=== PATIENT | female | born 1990 | race Caucasian/White ===

== ENCOUNTER 2016-12-08 17:50 | Emergency (ER) | payer SELFPAY ==
[~2016-12-08] VITALS: Ht 160 cm; Wt 79.5 kg
[~2016-12-08 17:50] MED LIST: ALBU2.5I INH; ALBU8I INH; DUONI NEB; PRED20 PO
[2016-12-08 17:51] VITALS: BP 139/83; PULSE 71; RESP 16; TEMP 98.8; O2SAT 99
--- NOTE | 2016-12-08 17:56 | PD ---
Physical Exam Time Seen by Provider: 17:53 Narrative 26yo F midsternal chest pain started earlier today. Progressively getting worse. Denies SOB. +Palpitations at times. Radiates to L arm "kind of." Denies N,V. Patient seen in triage. VS reviewed. Awaiting bed placement. Data Data Last Documented VS Vital Signs Date Time Temp Pulse Resp B/P Pulse Ox O2 Delivery O2 Flow Rate FiO2 12/08/16 17:51 98.8 71 16 139/83 99 Room Air MDM Supervised Visit with BRYANT: Blanca Batres December 08, 2016 17:56
[2016-12-08] MEDS ORDERED: KETOROLAC TROMETHAMINE 30 MG/ML (IVP) VIAL IV PUSH ONE (18:30)
[2016-12-08] MEDS ORDERED: SODIUM CHLORIDE 0.9% FLUSH 10 ML FLUSH IVF PRN (18:30)
[2016-12-08 18:37] LABS: AUTOMATED NEUTROPHIL # 5.7 TH/MM3 (1.8-7.7); BASOPHIL # 0.1 TH/MM3 (0-0.2); BASOPHIL % 0.6 % (0.0-2.0); EOSINOPHIL # 0.3 TH/MM3 (0-0.4); EOSINOPHIL % 2.8 % (0.0-4.0); HEMATOCRIT 39.4 % (35.0-46.0); HEMO FLAGS DIFF FINAL; LYMPH % 30.1 % (9.0-44.0); LYMPHOCYTE # 2.9 TH/MM3 (1.0-4.8); MEAN CELL VOLUME 78.7 FL (80.0-100.0); MEAN CORPUSCULAR HEMOGLOBIN 25.6 PG (27.0-34.0); MEAN CORPUSCULAR HGB CONC 32.6 % (32.0-36.0); MONO % 8.2 % (0.0-8.0); NEUT % 58.3 % (16.0-70.0); PLATELET COUNT 281 TH/MM3 (150-450); RED BLOOD COUNT 5.01 MIL/MM3 (4.00-5.30); RED CELL DISTRIBUTION WIDTH 13.6 % (11.6-17.2); WHITE BLOOD COUNT 9.8 TH/MM3 (4.0-11.0)
[2016-12-08 18:38] VITALS: O2SAT 98
--- NOTE | 2016-12-08 18:45 | RADRPT ---
EXAM DATE/TIME: 12/08/2016 18:29 [facility] COMPARISON: CHEST PA & LAT, November 09, 2014, 14:54. INDICATIONS : Chest pain. MEDICAL HISTORY : Asthma. SURGICAL HISTORY : None. ENCOUNTER: Initial ACUITY: 1 day PAIN SCORE: 7/10 LOCATION: chest FINDINGS: PA and lateral views of the chest demonstrate the lungs to be symmetrically aerated without evidence of mass, infiltrate or effusion. The cardiomediastinal contours are unremarkable. Osseous structure s are intact. CONCLUSION: Normal examination. Miguelito Duval MD on December 08, 2016 at 18:43 Board Certified Radiologist. This report was verified electronically.
--- NOTE | 2016-12-08 18:54 | PD ---
HPI Chief Complaint: Chest Pain Time Seen by Provider: 18:18 Travel History International Travel<30 days: No Contact w/Intl Traveler<30days: No Traveled to known affect area: No History of Present Illness HPI There is a 26-year-old female presents emergency Department with chest pain left -sided without radiation since early this morning. Patient states she's never had this Thing happen to her before. States the pain is sharp in nature, constant. Cannot determine any alleviating or exacerbating factors. Denies any shortness breath denies any hormone contraception of any kind. No family history of early heart disease. She denies any history of high blood pressure high cholesterol diabetes. Denies any dysphasia. PFSH Past Medical History Asthma: Yes Respiratory: Yes (ASTHMA) Immunizations Current: No ?: Not LMP: 11/15/16 : 0 Social History Alcohol Use: Yes (OCC) Tobacco Use: No Substance Use: No Allergies-Medications (Allergen,Severity, Reaction): Coded Allergies: No Known Allergies (Verified , 12/08/16) Reported Meds & Prescriptions Reported Meds & Active Scripts Active Deltasone 20 Mg Tab (Prednisone) 20 Mg Tab 20 Mg PO BID 5 Days Resp: Albuterol 2.5 Mg/3 Ml Neb (Albuterol Sulfate) 2.5 Mg/3 Ml Nebu 2.5 Mg INH Q4H PRN Ventolin Hfa (Albuterol Sulfate) 8 Gm Aero 1 Puff INH Q4 * SHAKE WELL BEFORE USE * Reported Resp: Albuterol/Ipratropium 2.5 Mg/0.5 Mg (Albuterol/Ipratropium) 1 Amp Nebu 1 Ampule NEB Q4HR NEB PRN Review of Systems Except as stated in HPI: all other systems reviewed are Neg Physical Exam Narrative GENERAL: Well-developed well-nourished no apparent distress. SKIN: No rash no wound no contusion. HEAD: Atraumatic. Normocephalic. EYES: Pupils equal and round. No scleral icterus. No injection or drainage. ENT: No nasal bleeding or discharge. Mucous membranes pink and moist. NECK: Trachea midline. No JVD. CARDIOVASCULAR: Regular rate and rhythm. No murmur appreciated. 2+ bilateral equal pulses in all 4 extremities, no chest wall tenderness. RESPIRATORY: No accessory muscle use. Clear to auscultation. Breath sounds equal bilaterally. GASTROINTESTINAL: Abdomen soft, non-tender, nondistended. Hepatic and splenic margins not palpable. MUSCULOSKELETAL: No obvious deformities. No clubbing. No cyanosis. No edema. NEUROLOGICAL: Awake and alert. No obvious cranial nerve deficits. Motor grossly within normal limits. Normal speech. PSYCHIATRIC: Appropriate mood and affect; insight and judgment normal. Data Data Last Documented VS Vital Signs Date Time Temp Pulse Resp B/P Pulse Ox O2 Delivery O2 Flow Rate FiO2 12/08/16 18:38 98 Room Air 12/08/16 17:51 98.8 71 16 139/83 Orders Electrocardiogram (12/08/16 ) Electrocardiogram (12/08/16 18:18) Complete Blood Count With Diff (12/08/16 18:18) Comprehensive Metabolic Panel (12/08/16 18:18) Magnesium (Mg) (12/08/16 18:18) Troponin I (12/08/16 18:18) Ecg Monitoring (12/08/16 18:18) Iv Access Insert/Monitor (12/08/16 18:18) Oximetry (12/08/16 18:18) Oxygen Administration (12/08/16 18:18) Sodium Chloride 0.9% Flush (Ns Flush) (12/08/16 18:30) Chest, Pa & Lat (12/08/16 18:18) Ketorolac Inj (Toradol Inj) (12/08/16 18:30) Labs Laboratory Tests Test 12/08/16 18:20 White Blood Count 9.8 TH/MM3 Red Blood Count 5.01 MIL/MM3 Hemoglobin 12.9 GM/DL Hematocrit 39.4 % Mean Corpuscular Volume 78.7 FL Mean Corpuscular Hemoglobin 25.6 PG Mean Corpuscular Hemoglobin 32.6 % Concent Red Cell Distribution Width 13.6 % Platelet Count 281 TH/MM3 Mean Platelet Volume 8.8 FL Neutrophils (%) (Auto) 58.3 % Lymphocytes (%) (Auto) 30.1 % Monocytes (%) (Auto) 8.2 % Eosinophils (%) (Auto) 2.8 % Basophils (%) (Auto) 0.6 % Neutrophils # (Auto) 5.7 TH/MM3 Lymphocytes # (Auto) 2.9 TH/MM3 Monocytes # (Auto) 0.8 TH/MM3 Eosinophils # (Auto) 0.3 TH/MM3 Basophils # (Auto) 0.1 TH/MM3 CBC Comment DIFF FINAL Differential Comment Sodium Level 139 MEQ/L Potassium Level 3.6 MEQ/L Chloride Level 104 MEQ/L Carbon Dioxide Level 27.2 MEQ/L Anion Gap 8 MEQ/L Blood Urea Nitrogen 15 MG/DL Creatinine 0.67 MG/DL Estimat Glomerular Filtration 106 ML/MIN Rate Random Glucose 80 MG/DL Calcium Level 8.9 MG/DL Magnesium Level 1.9 MG/DL Total Bilirubin 0.3 MG/DL Aspartate Amino Transf 14 U/L (AST/SGOT) Alanine Aminotransferase 18 U/L (ALT/SGPT) Alkaline Phosphatase 68 U/L Troponin I LESS THAN 0.02 NG/ML Total Protein 7.2 GM/DL Albumin 3.6 GM/DL [facility] Medical Decision Making Medical Screen Exam Complete: Yes Emergency Medical Condition: Yes Interpretation(s) EKG shows sinus arrhythmia left axis deviation and normal R-wave progression. No concerning ST-T changes. Intervals within normal limits. This is a borderline EKG but certainly nonischemic. Differential Diagnosis ACS highly unlikely, PE is excluded by wells and PERC criteria, costochondritis , esophagitis, gastritis. Narrative Course Patient was roomed in emergency department, initial workup including EKG troponin and chest x-ray and basic labs were reassuring. Patient was given Toradol which relieved her pain. Discussed need for follow-up the primary care physician of these daily clinic. She is low risk for ACS and is stable for discharge and outpatient workup at this time. Discussed return to ED criteria. Diagnosis Primary Impression: Chest pain with low risk for cardiac etiology Referrals: [facility] Disposition: 01 DISCHARGE HOME Condition: Stable Santiago Paige MD December 08, 2016 18:54
[2016-12-08 18:58] LABS: ANION GAP 8 MEQ/L (5-15); AST (GOT) 14 U/L (15-37); BICARBONATE 27.2 MEQ/L (21.0-32.0); BLOOD UREA NITROGEN 15 MG/DL (7-18); CHLORIDE 104 MEQ/L (98-107); GLOMERULAR FILTRATION RATE 106 ML/MIN (>89); MAGNESIUM 1.9 MG/DL (1.5-2.5); POTASSIUM 3.6 MEQ/L (3.5-5.1); SODIUM (NA) 139 MEQ/L (136-145)
[2016-12-08 19:02] LABS: ALKALINE PHOSPHATASE 68 U/L (45-117); ALT (GPT) 18 U/L (10-53); TOTAL BILIRUBIN ADULT 0.3 MG/DL (0.2-1.0)
--- NOTE | 2016-12-09 17:23 | EKG ---
Date Performed: 12/08/2016 Time Performed: 18:08:20 PTAGE: 26 years EKG: Sinus rhythm WITH MARKED SINUS ARRHYTHMIA BORDERLINE LEFT AXIS DEVIATION BORDERLINE ECG PREVIOUS TRACING : 01/19/2014 16.10 Compared to prior tracing no significant change DOCTOR: Lenin Neumann Interpretating Date/Time 12/09/2016 17:22:42
== END 2016-12-08 19:43 | disposition home or self-care (01) ==
LOC: NEPD 17:50
DX: R07.9 Chest pain, unspecified (principal)
CPT/HCPCS: 71020; 80053; 83735; 84484; 85025; 93005; 96374; 99285; J1885

== ENCOUNTER 2017-05-27 12:31 | Emergency (ER) | payer SELFPAY ==
[~2017-05-27] VITALS: Ht 160 cm; Wt 82.2 kg
[2017-05-27 12:33] VITALS: BP 141/94; PULSE 90; RESP 13; TEMP 98.5; O2SAT 99
[2017-05-27 12:59] VITALS: BP_SYST 145; BP_SYST 149; BP_DIAS 78; BP_DIAS 85; RESP 15; RESP 16
[2017-05-27] MEDS ORDERED: SODIUM CHLOR 0.9% 1000 ML INJ 1,000 ML IV ONE (13:00)
--- NOTE | 2017-05-27 13:04 | PD ---
HPI Chief Complaint: Cardiac Complaint Time Seen by Provider: 12:48 Travel History International Travel<30 days: No Contact w/Intl Traveler<30days: No Traveled to known affect area: No History of Present Illness HPI 26-year-old female that presents to the ED for evaluation of palpitations and possible syncope. Per patient she was at work today for about an hour ago had the episode where she felt like her heart was palpitating and then it stopped and then she thought she was given a passout. Per patient was in for about a minute. Patient states that she still doesn't feel back to normal. She has a history of asthma but denies any history of heart disease. States having a history of smoking. No history of palpitations or anxiety. Denies any fevers chills or sweats. States that she's been having some pains in her arms and legs to come and go. Per patient he feels like a nerve. She's had this for quite some time and has never been seen by anybody for this but states that for the past 3 days is becoming more noticeable for her. Per patient the discomfort is 4 out of 10. She states that she doesn't have any chest pain at this time but she feels something we are her chest. Denies any trauma. No head injury. Came by private vehicle. PFSH Past Medical History Asthma: Yes Respiratory: Yes (ASTHMA) Immunizations Current: No Tetanus Vaccination: Unknown Influenza Vaccination: No ?: Not LMP: APR 2017 : 0 Past Surgical History Surgical History: No Previous Surgery Social History Alcohol Use: Yes (OCC) Tobacco Use: No Substance Use: No Allergies-Medications (Allergen,Severity, Reaction): Coded Allergies: No Known Allergies (Verified Adverse Reaction, Unknown, 05/27/17) Reported Meds & Prescriptions Reported Meds & Active Scripts Active Vistaril (Hydroxyzine Pamoate) 25 Mg Cap 25 Mg PO TID PRN Proair Hfa 8.5 GM Inh (Albuterol Sulfate) 90 Mcg/Act Aer 2 Puff INH Q4-6H PRN 108 mcg/actuation Review of Systems Except as stated in HPI: all other systems reviewed are Neg Physical Exam Narrative GENERAL: SKIN: Warm and dry. HEAD: Atraumatic. Normocephalic. EYES: Pupils equal and round. No scleral icterus. No injection or drainage. ENT: No nasal bleeding or discharge. Mucous membranes pink and moist. Tongue is midline. No uvula deviation. NECK: Trachea midline. No JVD. CARDIOVASCULAR: Regular rate and rhythm. No murmurs, S3, S4. RESPIRATORY: No accessory muscle use. Clear to auscultation. Breath sounds equal bilaterally. GASTROINTESTINAL: Abdomen soft, non-tender, nondistended. Hepatic and splenic margins not palpable. MUSCULOSKELETAL: Extremities without clubbing, cyanosis, or edema. No obvious deformities. Full range of motion of the upper and lower extremities bilaterally. 2+ pulses bilaterally. NEUROLOGICAL: Awake and alert. No obvious cranial nerve deficits. Motor grossly within normal limits. Five out of 5 muscle strength in the arms and legs. Normal speech. PSYCHIATRIC: Appropriate mood and affect; insight and judgment normal. Data Data Last Documented VS Vital Signs Date Time Temp Pulse Resp B/P (MAP) Pulse Ox O2 Delivery O2 Flow Rate FiO2 05/27/17 12:59 90 15 145/78 (100) 90 16 145/78 (100) 88 145/82 (103) 92 149/85 (106) 05/27/17 12:44 99 Nasal Cannula 2.00 05/27/17 12:33 98.5 Orders Orders Electrocardiogram (05/27/17 12:52) Complete Blood Count With Diff (05/27/17 12:52) Basic Metabolic Panel (Bmp) (05/27/17 12:52) Ckmb (Isoenzyme) Profile (05/27/17 12:52) Troponin I (05/27/17 12:52) Prothrombin Time / Inr (Pt) (05/27/17 12:52) Act Partial Throm Time (Ptt) (05/27/17 12:52) D-Dimer (05/27/17 12:52) Magnesium (Mg) (05/27/17 12:52) Thyroid Stimulating Hormone (05/27/17 12:52) Chest, Single Ap (05/27/17 12:52) Ct Brain W/O Iv Contrast(Rout) (05/27/17 12:52) Iv Access Insert/Monitor (05/27/17 12:52) Ecg Monitoring (05/27/17 12:52) Orthostatic Vital Signs (05/27/17 12:52) Ed Urine Pregnancytest Poc (05/27/17 12:52) Sodium Chlor 0.9% 1000 Ml Inj (Ns 1000 M (05/27/17 13:00) Ed Discharge Order (05/27/17 14:00) Labs Laboratory Tests Test 05/27/17 13:00 White Blood Count 10.2 TH/MM3 Red Blood Count 4.78 MIL/MM3 Hemoglobin 12.5 GM/DL Hematocrit 38.0 % Mean Corpuscular Volume 79.3 FL Mean Corpuscular Hemoglobin 26.2 PG Mean Corpuscular Hemoglobin Concent 33.1 % Red Cell Distribution Width 14.2 % Platelet Count 273 TH/MM3 Mean Platelet Volume 8.8 FL Neutrophils (%) (Auto) 61.5 % Lymphocytes (%) (Auto) 27.6 % Monocytes (%) (Auto) 7.9 % Eosinophils (%) (Auto) 2.4 % Basophils (%) (Auto) 0.6 % Neutrophils # (Auto) 6.3 TH/MM3 Lymphocytes # (Auto) 2.8 TH/MM3 Monocytes # (Auto) 0.8 TH/MM3 Eosinophils # (Auto) 0.2 TH/MM3 Basophils # (Auto) 0.1 TH/MM3 CBC Comment DIFF FINAL Differential Comment Prothrombin Time 10.7 SEC Prothromb Time International Ratio 1.0 RATIO Activated Partial Thromboplast Time 27.3 SEC D-Dimer Quantitative (PE/DVT) LESS THAN 0.19 MG/L FEU Blood Urea Nitrogen 19 MG/DL Creatinine 0.68 MG/DL Random Glucose 84 MG/DL Calcium Level 8.6 MG/DL Magnesium Level 2.0 MG/DL Sodium Level 138 MEQ/L Potassium Level 4.2 MEQ/L Chloride Level 105 MEQ/L Carbon Dioxide Level 26.1 MEQ/L Anion Gap 7 MEQ/L Estimat Glomerular Filtration Rate 104 ML/MIN Total Creatine Kinase 87 U/L Troponin I LESS THAN 0.02 NG/ML Thyroid Stimulating Hormone 3rd Gen 2.100 uIU/ML MDM Medical Decision Making Medical Screen Exam Complete: Yes Emergency Medical Condition: Yes Medical Record Reviewed: Yes Interpretation(s) EKG shows sinus rhythm with no sign of acute ischemia or arrhythmia read by me and attending. CBC & BMP Diagram 05/27/17 13:00 Calcium Level 8.6, Magnesium Level 2.[address] 05/27/17 1252 Signed Impressions: Service Date/Time: Saturday, May 27, 2017 13:32 - CONCLUSION: Negative noncontrast head CT. Mikey Coleman MD Chest X-Ray 05/27/17 5802 Signed Impressions: Service Date/Time: Saturday, May 27, 2017 13:14 - CONCLUSION: No acute cardiopulmonary process. Dario Dubon MD Troponin and CK-MB negative. UA negative for acute disease. D-dimer negative as well. Differential Diagnosis Chest pain versus palpitations versus anxiety versus PE versus asthma exacerbation versus a typical chest pain versus syncope versus presyncope Narrative Course 26-year-old female that presents to the ED for evaluation of chest pain and palpitations. Patient was properly examined and was found to have signs and symptoms of unclear etiology. Possible anxiety versus cardiac. Labs and imaging were ordered. Low risk for PE but patient does smoke. Labs and imaging were ordered. This showed no sign of acute disease. Labs and imaging completely unremarkable. Unclear etiology of the patient's symptoms. Possible anxiety in the differential. Patient does have a history of asthma and has been using an old inhaler that no longer has any medication. Patient was given a refill of her inhaler and a perception for Vistaril to cover for anxiety. Told to follow closely with PCP. See ED worsening symptoms. Dr. Paul evaluated the patient and agrees with plan. Diagnosis Primary Impression: Near syncope Additional Impression: Atypical chest pain Patient Instructions: General Instructions Departure Forms: Tests/Procedures, Work Release Enter return to work date: May 29, 2017 Additional Instructions: Take medication as prescribed. Follow-up with PCP. See ED worsening symptoms. Med/Other Pt SpecificInfo: Prescription(s) given Scripts Hydroxyzine Pamoate (Vistaril) 25 Mg Cap 25 MG PO TID Y for ANXIETY, #14 CAP 0 Refills Prov: Moose Nuemann MD 05/27/17 Albuterol 8.5 GM Inh (Proair Hfa 8.5 GM Inh) 90 Mcg/Act Aer 2 PUFF INH Q4-6H Y for SHORTNESS OF BREATH, #1 INHALER 0 Refills 108 mcg/actuation Prov: Moose Neumann MD 05/27/17 Disposition: 01 DISCHARGE HOME Condition: Stable Enrique Chery May 27, 2017 13:04
[2017-05-27 13:18] LABS: AUTOMATED NEUTROPHIL # 6.3 TH/MM3 (1.8-7.7); BASOPHIL # 0.1 TH/MM3 (0-0.2); BASOPHIL % 0.6 % (0.0-2.0); EOSINOPHIL # 0.2 TH/MM3 (0-0.4); EOSINOPHIL % 2.4 % (0.0-4.0); HEMO FLAGS DIFF FINAL; LYMPH % 27.6 % (9.0-44.0); LYMPHOCYTE # 2.8 TH/MM3 (1.0-4.8); MEAN CELL VOLUME 79.3 FL (80.0-100.0); MEAN CORPUSCULAR HEMOGLOBIN 26.2 PG (27.0-34.0); MEAN CORPUSCULAR HGB CONC 33.1 % (32.0-36.0); MONO % 7.9 % (0.0-8.0); NEUT % 61.5 % (16.0-70.0); PLATELET COUNT 273 TH/MM3 (150-450); RED BLOOD COUNT 4.78 MIL/MM3 (4.00-5.30); RED CELL DISTRIBUTION WIDTH 14.2 % (11.6-17.2); WHITE BLOOD COUNT 10.2 TH/MM3 (4.0-11.0)
--- NOTE | 2017-05-27 13:32 | RADRPT ---
EXAM DATE/TIME: 05/27/2017 13:14 [facility] COMPARISON: CHEST SINGLE AP, January 19, 2014, 16:28. INDICATIONS : Shortness of breath and faint feeling. MEDICAL HISTORY : Asthma. SURGICAL HISTORY : None. ENCOUNTER: Initial ACUITY: 1 day PAIN SCORE: 4/10 LOCATION: Extremities and whole body pain. FINDINGS: A single view of the chest demonstrates the lungs to be symmetrically aerated without evidence of mas s, infiltrate or effusion. The cardiomediastinal contours are unremarkable. Osseous structures are intact. CONCLUSION: No acute cardiopulmonary process. aDrio Dubon MD on May 27, 2017 at 13:28 Board Certified Radiologist. This report was verified electronically.
[2017-05-27 13:34] LABS: APTT (PATIENT) 27.3 SEC (24.3-30.1); PROTHROMBIN TIME - PATIENT 10.7 SEC (9.8-11.6)
[2017-05-27 13:38] LABS: ANION GAP 7 MEQ/L (5-15); BICARBONATE 26.1 MEQ/L (21.0-32.0); BLOOD UREA NITROGEN 19 MG/DL (7-18); CHLORIDE 105 MEQ/L (98-107); GLOMERULAR FILTRATION RATE 104 ML/MIN (>89); POTASSIUM 4.2 MEQ/L (3.5-5.1); SODIUM (NA) 138 MEQ/L (136-145)
--- NOTE | 2017-05-27 13:45 | RADRPT ---
EXAM DATE/TIME: 05/27/2017 13:32 [facility] COMPARISON: No previous studies available for comparison. INDICATIONS : Near syncope. RADIATION DOSE: 34.45 CTDIvol (mGy) MEDICAL HISTORY : None SURGICAL HISTORY : None. ENCOUNTER: Initial ACUITY: 1 day PAIN SCALE: 0/10 LOCATION: cranial TECHNIQUE: Multiple contiguous axial images were obtained of the head. Using automated exposure control and adj ustment of the mA and/or kV according to patient size, radiation dose was kept as low as reasonably a chievable to obtain optimal diagnostic quality images. DICOM format image data is available electro nically for review and comparison. FINDINGS: CEREBRUM: The ventricles are normal. No evidence of midline shift, mass lesion, hemorrhage or acute infarction . No extra-axial fluid collections are seen. POSTERIOR FOSSA: The cerebellum and brainstem demonstrate no abnormality. The 4th ventricle is midline. The cerebell opontine angle is unremarkable. EXTRACRANIAL: The sinuses are clear. SKULL: The calvaria is intact. No evidence of skull fracture. CONCLUSION: Negative noncontrast head CT. Mikey Coleman MD on May 27, 2017 at 13:42 Board Certified Radiologist. This report was verified electronically.
[2017-05-27 13:51] LABS: CREATINE KINASE 87 U/L (26-192)
--- NOTE | 2017-05-27 14:00 | PD ---
Data Data Last Documented VS Vital Signs Date Time Temp Pulse Resp B/P (MAP) Pulse Ox O2 Delivery O2 Flow Rate FiO2 05/27/17 12:59 90 15 145/78 (100) 90 16 145/78 (100) 88 145/82 (103) 92 149/85 (106) 05/27/17 12:44 99 Nasal Cannula 2.00 05/27/17 12:33 98.5 Orders Orders Electrocardiogram (05/27/17 12:52) Complete Blood Count With Diff (05/27/17 12:52) Basic Metabolic Panel (Bmp) (05/27/17 12:52) Ckmb (Isoenzyme) Profile (05/27/17 12:52) Troponin I (05/27/17 12:52) Prothrombin Time / Inr (Pt) (05/27/17 12:52) Act Partial Throm Time (Ptt) (05/27/17 12:52) D-Dimer (05/27/17 12:52) Magnesium (Mg) (05/27/17 12:52) Thyroid Stimulating Hormone (05/27/17 12:52) Chest, Single Ap (05/27/17 12:52) Ct Brain W/O Iv Contrast(Rout) (05/27/17 12:52) Iv Access Insert/Monitor (05/27/17 12:52) Ecg Monitoring (05/27/17 12:52) Orthostatic Vital Signs (05/27/17 12:52) Ed Urine Pregnancytest Poc (05/27/17 12:52) Sodium Chlor 0.9% 1000 Ml Inj (Ns 1000 M (05/27/17 13:00) Labs Laboratory Tests Test 05/27/17 13:00 White Blood Count 10.2 TH/MM3 Red Blood Count 4.78 MIL/MM3 Hemoglobin 12.5 GM/DL Hematocrit 38.0 % Mean Corpuscular Volume 79.3 FL Mean Corpuscular Hemoglobin 26.2 PG Mean Corpuscular Hemoglobin Concent 33.1 % Red Cell Distribution Width 14.2 % Platelet Count 273 TH/MM3 Mean Platelet Volume 8.8 FL Neutrophils (%) (Auto) 61.5 % Lymphocytes (%) (Auto) 27.6 % Monocytes (%) (Auto) 7.9 % Eosinophils (%) (Auto) 2.4 % Basophils (%) (Auto) 0.6 % Neutrophils # (Auto) 6.3 TH/MM3 Lymphocytes # (Auto) 2.8 TH/MM3 Monocytes # (Auto) 0.8 TH/MM3 Eosinophils # (Auto) 0.2 TH/MM3 Basophils # (Auto) 0.1 TH/MM3 CBC Comment DIFF FINAL Differential Comment Prothrombin Time 10.7 SEC Prothromb Time International Ratio 1.0 RATIO Activated Partial Thromboplast Time 27.3 SEC D-Dimer Quantitative (PE/DVT) LESS THAN 0.19 MG/L FEU Blood Urea Nitrogen 19 MG/DL Creatinine 0.68 MG/DL Random Glucose 84 MG/DL Calcium Level 8.6 MG/DL Magnesium Level 2.0 MG/DL Sodium Level 138 MEQ/L Potassium Level 4.2 MEQ/L Chloride Level 105 MEQ/L Carbon Dioxide Level 26.1 MEQ/L Anion Gap 7 MEQ/L Estimat Glomerular Filtration Rate 104 ML/MIN Total Creatine Kinase 87 U/L Troponin I LESS THAN 0.02 NG/ML Thyroid Stimulating Hormone 3rd Gen 2.100 uIU/ML MDM Medical Record Reviewed: Yes Supervised Visit with BRYANT: Yes Narrative Course CBC & BMP Diagram 05/27/17 13:00 Calcium Level 8.6, Magnesium Level 2.0 Troponins less than 0.02 The d-dimer is undetectable EKG shows sinus rate 63 normal axis intervals Last [address] 05/27/17 1252 Signed Impressions: Service Date/Time: Saturday, May 27, 2017 13:32 - CONCLUSION: Negative noncontrast head CT. Mikey Coleman MD Chest X-Ray 05/27/17 1252 Signed Impressions: Service Date/Time: Saturday, May 27, 2017 13:14 - CONCLUSION: No acute cardiopulmonary process. Dario Dubon MD Workup here is unremarkable etiology of the patient's complaint isn't readily obvious however PE is unlikely as is preexcitation arrhythmia as is acute coronary disease. Lungs are clear exam and x-rays clear too. Given her age and risk factors it's reasonable send her home with lifestyle modification diet modification discussion as well as relaxation techniques. Follow-up with cardiology appropriate for Holter monitor. Pt verbalized understanding. Diagnosis Primary Impression: Chest pain with low risk for cardiac etiology Additional Impression: Near syncope Referrals: Dontae Hernandes MD 2 days Additional Instruction: You have a choice when it comes to health care, and we are glad that you chose [facility]. Hopefully, we have met your expectations on today's visit. You are welcome to return to [facility] at any time, as we are committed to meeting the health care needs of our community. Med/Other Pt SpecificInfo: No Change to Meds Scripts No Active Prescriptions or Reported Meds Disposition: 01 DISCHARGE HOME Condition: Moose Campbell MD May 27, 2017 14:00
[2017-05-27] MEDS ORDERED: ALBUAER3 INH (14:08)
[2017-05-27] MEDS ORDERED: VIST25CA PO (14:08)
[2017-05-27 14:38] VITALS: BP 140/75
--- NOTE | 2017-05-28 12:21 | EKG ---
Date Performed: 05/27/2017 Time Performed: 12:49:20 PTAGE: 26 years EKG: Sinus rhythm BORDERLINE LEFT AXIS DEVIATION BORDERLINE ECG Compared to PREVIOUS TRACING , sinus arrhythmia no longer present. PREVIOUS TRACIN12/08/2016 18.08 DOCTOR: Jeferson Ramirez Interpretating Date/Time 05/28/2017 12:19:29
== END 2017-05-27 14:39 | disposition home or self-care (01) ==
LOC: NEPE 12:31
DX: R55 Syncope and collapse (principal); R07.89 Other chest pain; J45.909 Unspecified asthma, uncomplicated
CPT/HCPCS: 70450; 71010; 80048; 82550; 83735; 84443; 84484; 84703; 85025; 85379; 85610; 85730; 93005; 96360; 99285; J7030

== ENCOUNTER 2017-10-13 16:44 | Emergency (ER) | payer SELFPAY ==
[~2017-10-13] VITALS: Ht 157.5 cm; Wt 80.0 kg
[~2017-10-13 16:44] MED LIST changes: -ALBU2.5I INH; -ALBU8I INH; +ALBUAER3 INH; -DUONI NEB; -PRED20 PO; +VIST25CA PO
[2017-10-13 16:49] VITALS: BP 153/79; PULSE 86; RESP 18; TEMP 98.7; O2SAT 99
[2017-10-13] MEDS ORDERED: MECLIZINE HCL 25 MG TAB PO ONE (19:45)
[2017-10-13] MEDS ORDERED: ONDANSETRON HCL 4 MG/2 ML VIAL IVP ONE (19:45)
[2017-10-13] MEDS ORDERED: SODIUM CHLOR 0.9% 1000 ML INJ 1,000 ML IV ONE (19:45)
--- NOTE | 2017-10-13 19:49 | PD ---
HPI Chief Complaint: Numbness/Tingling Time Seen by Provider: 19:39 Travel History International Travel<30 days: No Contact w/Intl Traveler<30days: No Traveled to known affect area: No History of Present Illness HPI 26-year-old female with history of migraines and asthma presents for evaluation of a vertigo sensation. Symptoms started 6 days ago. She reports a room spinning sensation which is worse with movement and somewhat alleviated when she is sitting still. She reports frequent migraine headaches, she has a mild frontal headache currently which is similar to her migraines and she believes that it is secondary to being hungry. She reports some associated nausea. She reports one episode of vomiting 5 days ago, none since. She reports slightly loose stools 4 days ago, none since. Denies tinnitus, blurred vision, palpitations, chest pain, shortness of breath, cough, congestion, sore throat, ear pain, fevers, chills, rash, recent travel, recent illness. Her last menstrual period was in early September. She has no other complaints at this time. PFS Past Medical History Asthma: Yes Respiratory: Yes (ASTHMA) Immunizations Current: No ?: Not : 0 Social History Alcohol Use: Yes (OCC) Tobacco Use: No Substance Use: No Allergies-Medications (Allergen,Severity, Reaction): Coded Allergies: No Known Allergies (Verified Adverse Reaction, Unknown, 05/27/17) Reported Meds & Prescriptions Reported Meds & Active Scripts Active Zofran (Ondansetron HCl) 4 Mg Tab 4 Mg PO Q6HR PRN Meclizine (Meclizine HCl) 25 Mg Tab 25 Mg PO TID PRN Vistaril (Hydroxyzine Pamoate) 25 Mg Cap 25 Mg PO TID PRN Proair Hfa 8.5 GM Inh (Albuterol Sulfate) 90 Mcg/Act Aer 2 Puff INH Q4-6H PRN 108 mcg/actuation Review of Systems Except as stated in HPI: all other systems reviewed are Neg Physical Exam Narrative GENERAL: Well-developed well-nourished female no acute distress resting comfortably in hospital bed vital signs reviewed SKIN: Warm and dry. HEAD: Atraumatic. Normocephalic. EYES: Pupils equal and round. No scleral icterus. No injection or drainage. ENT: No nasal bleeding or discharge. Mucous membranes pink and moist. NECK: Trachea midline. No JVD. CARDIOVASCULAR: Regular rate and rhythm. No murmur appreciated. RESPIRATORY: No accessory muscle use. Clear to auscultation. Breath sounds equal bilaterally. GASTROINTESTINAL: Abdomen soft, non-tender, nondistended. Hepatic and splenic margins not palpable. MUSCULOSKELETAL: No obvious deformities. No clubbing. No cyanosis. No edema. NEUROLOGICAL: Awake and alert. No obvious cranial nerve deficits. Motor grossly within normal limits. Normal speech. No nystagmus. Jamison-Hallpike maneuver reproduces her vertigo sensation. Normal finger to nose. PSYCHIATRIC: Appropriate mood and affect; insight and judgment normal. Data Data Last Documented VS Vital Signs Date Time Temp Pulse Resp B/P (MAP) Pulse Ox O2 Delivery O2 Flow Rate FiO2 10/13/17 16:49 98.7 86 18 153/79 (103) 99 Orders Orders Electrocardiogram (10/13/17 19:45) Basic Metabolic Panel (Bmp) (10/13/17 19:45) Ed Urine Pregnancytest Poc (10/13/17 19:45) Complete Blood Count With Diff (10/13/17 19:45) Magnesium (Mg) (10/13/17 19:45) Ct Brain W/O Iv Contrast(Rout) (10/13/17 19:45) Iv Access Insert/Monitor (10/13/17 19:45) Meclizine (Antivert) (10/13/17 19:45) Ondansetron Inj (Zofran Inj) (10/13/17 19:45) Sodium Chlor 0.9% 1000 Ml Inj (Ns 1000 M (10/13/17 19:45) Ed Discharge Order (10/13/17 21:59) Labs Laboratory Tests Test 10/13/17 20:20 White Blood Count 12.8 TH/MM3 Red Blood Count 5.26 MIL/MM3 Hemoglobin 13.5 GM/DL Hematocrit 41.0 % Mean Corpuscular Volume 78.0 FL Mean Corpuscular Hemoglobin 25.6 PG Mean Corpuscular Hemoglobin Concent 32.8 % Red Cell Distribution Width 14.5 % Platelet Count 332 TH/MM3 Mean Platelet Volume 8.7 FL Neutrophils (%) (Auto) 61.6 % Lymphocytes (%) (Auto) 29.5 % Monocytes (%) (Auto) 5.5 % Eosinophils (%) (Auto) 2.7 % Basophils (%) (Auto) 0.7 % Neutrophils # (Auto) 7.9 TH/MM3 Lymphocytes # (Auto) 3.8 TH/MM3 Monocytes # (Auto) 0.7 TH/MM3 Eosinophils # (Auto) 0.3 TH/MM3 Basophils # (Auto) 0.1 TH/MM3 CBC Comment DIFF FINAL Differential Comment Blood Urea Nitrogen 17 MG/DL Creatinine 0.65 MG/DL Random Glucose 91 MG/DL Calcium Level 8.8 MG/DL Magnesium Level 1.9 MG/DL Sodium Level 137 MEQ/L Potassium Level 3.7 MEQ/L Chloride Level 103 MEQ/L Carbon Dioxide Level 26.7 MEQ/L Anion Gap 7 MEQ/L Estimat Glomerular Filtration Rate 109 ML/MIN [facility] Medical Decision Making Medical Screen Exam Complete: Yes Emergency Medical Condition: Yes Medical Record Reviewed: Yes Differential Diagnosis BPPV, menieres, labyrinthitis, central vertigo, dehydration, electrolyte abnormality, orthostatic hypotension Narrative Course 26-year-old female presents with vertigo sensation which is worse with movement for the past 6 days. She also reports intermittent headaches consistent with her previous migraines. She reports nausea. On examination she has no focal neurologic deficits. Jamison-Hallpike maneuver was performed which reproduced her vertigo sensation. Plan is for lab work, CT the brain. She will be given IV fluids, Zofran, oral meclizine. Lab work has been reviewed. WBC is 12.8, otherwise lab work is unremarkable. Urine test is negative. CT the brain reveals no acute abnormalities. Upon reexamination the patient's symptoms have essentially resolved. Her vertigo appears peripheral in nature, reproduced with movement, likely BPPV. The plan is to discharge her with a short course of Zofran and meclizine to use as needed for symptoms. Recommended close follow-up with primary care physician. She is stable for discharge. Diagnosis Primary Impression: Vertigo Departure Forms: Tests/Procedures, Work Release Enter return to work date: Oct 15, 2017 Additional Instructions: Medication as needed. Follow-up with primary care physician next week. Return for any acutely new or worsening symptoms. Med/Other Pt SpecificInfo: Prescription(s) given Scripts Ondansetron (Zofran) 4 Mg Tab 4 MG PO Q6HR Y for NAUSEA OR VOMITING, #20 TAB 0 Refills Prov: Vernon Young MD 10/13/17 Meclizine (Meclizine) 25 Mg Tab 25 MG PO TID Y for VERTIGO, #20 TAB 0 Refills Prov: Vernon Young MD 10/13/17 Disposition: 01 DISCHARGE HOME Condition: Stable Sam Vigil Oct 13, 2017 19:49
[2017-10-13 20:33] LABS: AUTOMATED NEUTROPHIL # 7.9 TH/MM3 (1.8-7.7); BASOPHIL # 0.1 TH/MM3 (0-0.2); BASOPHIL % 0.7 % (0.0-2.0); EOSINOPHIL # 0.3 TH/MM3 (0-0.4); EOSINOPHIL % 2.7 % (0.0-4.0); HEMOGLOBIN 13.5 GM/DL (11.6-15.3); LYMPH % 29.5 % (9.0-44.0); LYMPHOCYTE # 3.8 TH/MM3 (1.0-4.8); MEAN CORPUSCULAR HEMOGLOBIN 25.6 PG (27.0-34.0); MEAN CORPUSCULAR HGB CONC 32.8 % (32.0-36.0); MEAN PLATELET VOLUME 8.7 FL (7.0-11.0); MONO % 5.5 % (0.0-8.0); MONOCYTE # 0.7 TH/MM3 (0-0.9); NEUT % 61.6 % (16.0-70.0); PLATELET COUNT 332 TH/MM3 (150-450); RED BLOOD COUNT 5.26 MIL/MM3 (4.00-5.30); RED CELL DISTRIBUTION WIDTH 14.5 % (11.6-17.2); WHITE BLOOD COUNT 12.8 TH/MM3 (4.0-11.0)
[2017-10-13 21:00] LABS: BICARBONATE 26.7 MEQ/L (21.0-32.0); CALCIUM 8.8 MG/DL (8.5-10.1); CREATININE 0.65 MG/DL (0.50-1.00); MAGNESIUM 1.9 MG/DL (1.5-2.5)
--- NOTE | 2017-10-13 21:33 | RADRPT ---
EXAM DATE/TIME: 10/13/2017 20:48 [place] COMPARISON: CT BRAIN W/O CONTRAST, May 27, 2017, 13:32. INDICATIONS : Dizziness. RADIATION DOSE: 34.82 CTDIvol (mGy) MEDICAL HISTORY : None SURGICAL HISTORY : None. ENCOUNTER: Initial ACUITY: 1 day PAIN SCALE: 0/10 LOCATION: cranial TECHNIQUE: Multiple contiguous axial images were obtained of the head. Using automated exposure control and adj ustment of the mA and/or kV according to patient size, radiation dose was kept as low as reasonably a chievable to obtain optimal diagnostic quality images. DICOM format image data is available electro nically for review and comparison. FINDINGS: CEREBRUM: The ventricles are normal for age. No evidence of midline shift, mass lesion, hemorrhage or acute in farction. No extra-axial fluid collections are seen. POSTERIOR FOSSA: The cerebellum and brainstem are intact. The 4th ventricle is midline. The cerebellopontine angle i s unremarkable. EXTRACRANIAL: The visualized portion of the orbits is intact. SKULL: The calvaria is intact. No evidence of skull fracture. CONCLUSION: No acute disease. Mikey Cummings MD on October 13, 2017 at 21:31 Board Certified Radiologist. This report was verified electronically.
[2017-10-13] MEDS ORDERED: ZOFR4TAB PO (22:00)
[2017-10-13] MEDS ORDERED: MECL-62 PO (22:00)
--- NOTE | 2017-10-14 11:24 | EKG ---
Date Performed: 10/13/2017 Time Performed: 20:31:24 PTAGE: 26 years EKG: Sinus rhythm LOW QRS VOLTAGE IN PRECORDIAL LEADS POSSIBLE RIGHT VENTRICULAR CONDUCTION DELAY BORDERLINE ECG PREVIOUS TRACING : 05/27/2017 12.49 Since the previous tracing, no significant change noted DOCTOR: Kodak Sanchez Interpretating Date/Time 10/14/2017 11:23:06
== END 2017-10-13 22:40 | disposition home or self-care (01) ==
LOC: NEPD 16:44
DX: R42 Dizziness and giddiness (principal); R94.31 Abnormal electrocardiogram [ECG] [EKG]; J45.909 Unspecified asthma, uncomplicated
CPT/HCPCS: 70450; 80048; 83735; 84703; 85025; 93005; 96374; 99285; J2405; J7030

== ENCOUNTER 2017-12-13 15:18 | Emergency (ER) | payer SELFPAY ==
[~2017-12-13] VITALS: Ht 160 cm; Wt 82.0 kg
[~2017-12-13 15:18] MED LIST changes: +MECL-62 PO; +ZOFR4TAB PO
[2017-12-13 15:22] VITALS: BP 163/69; PULSE 84; RESP 18; TEMP 99.2; O2SAT 97
[2017-12-13] MEDS ORDERED: SODIUM CHLOR 0.9% 1000 ML INJ 1,000 ML IV ONE (16:17)
--- NOTE | 2017-12-13 16:21 | PD ---
HPI Chief Complaint: Dizziness Time Seen by Provider: 16:11 Travel History International Travel<30 days: No Contact w/Intl Traveler<30days: No Traveled to known affect area: No History of Present Illness HPI 27-year-old female with history of asthma presents for evaluation. For 3 months she has had intermittent dizziness, fatigue, myalgias, arthralgias, nausea and decreased appetite. She describes dizziness as room spinning sensation which is worse with movements. Denies abdominal pain, diarrhea, fevers, chills, headache, blurred vision. She was here with similar symptoms in September. She was diagnosed with vertigo. She reports the meclizine helped some with her symptoms but they always come back. She does not have a primary care physician and has never followed up since her hospital visits. She had a normal CT of the brain on October 13. No other complaints. PFSH Past Medical History Asthma: Yes Respiratory: Yes (ASTHMA) Immunizations Current: Yes ?: Unknown LMP: middle of october 2017 : 0 Past Surgical History Surgical History: No Previous Surgery Social History Alcohol Use: Yes (OCC) Tobacco Use: No Substance Use: No Allergies-Medications (Allergen,Severity, Reaction): Coded Allergies: No Known Allergies (Verified Adverse Reaction, Unknown, 12/13/17) Reported Meds & Prescriptions Reported Meds & Active Scripts Active Zofran (Ondansetron HCl) 4 Mg Tab 4 Mg PO Q6HR PRN Zofran (Ondansetron HCl) 4 Mg Tab 4 Mg PO Q6HR PRN Meclizine (Meclizine HCl) 25 Mg Tab 25 Mg PO TID PRN Vistaril (Hydroxyzine Pamoate) 25 Mg Cap 25 Mg PO TID PRN Proair Hfa 8.5 GM Inh (Albuterol Sulfate) 90 Mcg/Act Aer 2 Puff INH Q4-6H PRN 108 mcg/actuation Review of Systems Except as stated in HPI: all other systems reviewed are Neg Physical Exam Narrative GENERAL: Well-nourished female no acute distress SKIN: Warm and dry. HEAD: Atraumatic. Normocephalic. EYES: Pupils equal and round. No scleral icterus. No injection or drainage. No nystagmus. ENT: No nasal bleeding or discharge. Mucous membranes pink and moist. NECK: Trachea midline. No JVD. CARDIOVASCULAR: Regular rate and rhythm. No murmur appreciated. RESPIRATORY: No accessory muscle use. Clear to auscultation. Breath sounds equal bilaterally. GASTROINTESTINAL: Abdomen soft, non-tender, nondistended. Hepatic and splenic margins not palpable. MUSCULOSKELETAL: No obvious deformities. No clubbing. No cyanosis. No edema. NEUROLOGICAL: Awake and alert. No obvious cranial nerve deficits. Motor grossly within normal limits. Normal speech. Normal finger to nose PSYCHIATRIC: Appropriate mood and affect; insight and judgment normal. Data Data Last Documented VS Vital Signs Date Time Temp Pulse Resp B/P (MAP) Pulse Ox O2 Delivery O2 Flow Rate FiO2 12/13/17 16:30 69 14 97 Room Air 12/13/17 15:22 99.2 163/69 (100) Orders Orders Electrocardiogram (12/13/17 16:17) Ed Urine Pregnancytest Poc (12/13/17 16:17) Complete Blood Count With Diff (12/13/17 16:17) Comprehensive Metabolic Panel (12/13/17 16:17) Magnesium (Mg) (12/13/17 16:17) Urinalysis - C+S If Indicated (12/13/17 16:17) Blood Glucose (12/13/17 16:17) Ecg Monitoring (12/13/17 16:17) Iv Access Insert/Monitor (12/13/17 16:17) Oximetry (12/13/17 16:17) Meclizine (Antivert) (12/13/17 16:30) Ondansetron Odt (Zofran Odt) (12/13/17 16:30) Sodium Chloride 0.9% Flush (Ns Flush) (12/13/17 16:30) Sodium Chlor 0.9% 1000 Ml Inj (Ns 1000 M (12/13/17 16:17) Creatine Kinase (Cpk) (12/13/17 16:17) Labs Laboratory Tests Test 12/13/17 16:30 White Blood Count 11.1 TH/MM3 Red Blood Count 5.16 MIL/MM3 Hemoglobin 13.4 GM/DL Hematocrit 40.4 % Mean Corpuscular Volume 78.3 FL Mean Corpuscular Hemoglobin 25.9 PG Mean Corpuscular Hemoglobin Concent 33.0 % Red Cell Distribution Width 14.1 % Platelet Count 318 TH/MM3 Mean Platelet Volume 9.0 FL Neutrophils (%) (Auto) 62.0 % Lymphocytes (%) (Auto) 24.3 % Monocytes (%) (Auto) 8.0 % Eosinophils (%) (Auto) 5.0 % Basophils (%) (Auto) 0.7 % Neutrophils # (Auto) 6.9 TH/MM3 Lymphocytes # (Auto) 2.7 TH/MM3 Monocytes # (Auto) 0.9 TH/MM3 Eosinophils # (Auto) 0.6 TH/MM3 Basophils # (Auto) 0.1 TH/MM3 CBC Comment DIFF FINAL Differential Comment Urine Color YELLOW Urine Turbidity HAZY Urine pH 8.0 Urine Specific [place] 1.024 Urine Protein TRACE mg/dL Urine Glucose (UA) NEG mg/dL Urine Ketones NEG mg/dL Urine Occult Blood NEG Urine Nitrite NEG Urine Bilirubin NEG Urine Urobilinogen LESS THAN 2.0 MG/DL Urine Leukocyte Esterase NEG Urine RBC 1 /hpf Urine WBC 2 /hpf Urine Squamous Epithelial Cells 27 /hpf Urine Amorphous Sediment RARE Microscopic Urinalysis Comment CULT NOT INDICATED Blood Urea Nitrogen 15 MG/DL Creatinine 0.71 MG/DL Random Glucose 82 MG/DL Total Protein 7.6 GM/DL Albumin 3.7 GM/DL Calcium Level 9.1 MG/DL Magnesium Level 1.9 MG/DL Alkaline Phosphatase 67 U/L Aspartate Amino Transf (AST/SGOT) 26 U/L Alanine Aminotransferase (ALT/SGPT) 21 U/L Total Bilirubin 0.4 MG/DL Sodium Level 138 MEQ/L Potassium Level 4.0 MEQ/L Chloride Level 104 MEQ/L Carbon Dioxide Level 25.8 MEQ/L Anion Gap 8 MEQ/L Estimat Glomerular Filtration Rate 98 ML/MIN Total Creatine Kinase 78 U/L [facility] Medical Decision Making Medical Screen Exam Complete: Yes Emergency Medical Condition: Yes Medical Record Reviewed: Yes Differential Diagnosis Vertigo, electrolyte abnormality, rheumatologic illness, myositis, rhabdomyolysis, fibromyalgia, dehydration Narrative Course Physical examination is unremarkable. We will check basic lab work. She will be given IV fluids, meclizine and Zofran. CBC reveals a WBC count of 11.1 otherwise unremarkable. CMP is unremarkable. Total CK 78. Urine test is negative. Urinalysis is unremarkable. Patient feels improved. At this point time the plan will be to discharge the patient have her follow-up with a primary care physician for potential rheumatology or neurology follow-up. She will be given a prescription for Zofran. Diagnosis Primary Impression: Myalgia Additional Impressions: Nausea Vertigo Referrals: [facility] Departure Forms: Tests/Procedures, Work Release Enter return to work date: December 15, 2017 Additional Instructions: Medication as needed for nausea. Stay well hydrated and well-nourished. Follow -up with a primary care physician. Return for any emergent medical conditions. Med/Other Pt SpecificInfo: Prescription(s) given Scripts Ondansetron (Zofran) 4 Mg Tab 4 MG PO Q6HR Y for NAUSEA OR VOMITING, #20 TAB 0 Refills Prov: Helen Chatman 12/13/17 Disposition: 01 DISCHARGE HOME Condition: Stable Sam Vigil December 13, 2017 16:21
[2017-12-13 16:30] VITALS: PULSE 69; RESP 14; O2SAT 97
[2017-12-13] MEDS ORDERED: MECLIZINE HCL 25 MG TAB PO ONE (16:30)
[2017-12-13] MEDS ORDERED: ONDANSETRON ODT 4 MG TAB PO/SL ONE (16:30)
[2017-12-13] MEDS ORDERED: SODIUM CHLORIDE 0.9% FLUSH 10 ML FLUSH IVF PRN (16:30)
[2017-12-13 16:55] LABS: AUTOMATED NEUTROPHIL # 6.9 TH/MM3 (1.8-7.7); BASOPHIL # 0.1 TH/MM3 (0-0.2); BASOPHIL % 0.7 % (0.0-2.0); EOSINOPHIL # 0.6 TH/MM3 (0-0.4); HEMATOCRIT 40.4 % (35.0-46.0); HEMOGLOBIN 13.4 GM/DL (11.6-15.3); LYMPH % 24.3 % (9.0-44.0); LYMPHOCYTE # 2.7 TH/MM3 (1.0-4.8); MEAN CELL VOLUME 78.3 FL (80.0-100.0); MEAN CORPUSCULAR HEMOGLOBIN 25.9 PG (27.0-34.0); MONOCYTE # 0.9 TH/MM3 (0-0.9); PLATELET COUNT 318 TH/MM3 (150-450); RED BLOOD COUNT 5.16 MIL/MM3 (4.00-5.30); RED CELL DISTRIBUTION WIDTH 14.1 % (11.6-17.2); WHITE BLOOD COUNT 11.1 TH/MM3 (4.0-11.0)
[2017-12-13 16:58] LABS: AMORPHOUS SEDIMENT, URINE RARE; BILIRUBIN, URINE NEG (NEG); BLOOD, URINE NEG (NEG); GLUCOSE,URINE NEG (NEG); KETONE, URINE NEG (NEG); NITRITE,URINE NEG (NEG); SQUAMOUS EPITHELIAL CELL URINE 27 /hpf (0-5); URINE COLOR YELLOW (YELLW/STRAW); URINE LEUKOCYTE ESTERASE NEG (NEG)
[2017-12-13 17:12] LABS: BLOOD UREA NITROGEN 15 MG/DL (7-18)
[2017-12-13 17:22] LABS: ALBUMIN 3.7 GM/DL (3.4-5.0); ALKALINE PHOSPHATASE 67 U/L (45-117); ALT (GPT) 21 U/L (10-53); AST (GOT) 26 U/L (15-37); BICARBONATE 25.8 MEQ/L (21.0-32.0); CALCIUM 9.1 MG/DL (8.5-10.1); CHLORIDE 104 MEQ/L (98-107); CREATININE 0.71 MG/DL (0.50-1.00); GLOMERULAR FILTRATION RATE 98 ML/MIN (>89); GLUCOSE,RANDOM 82 MG/DL (74-106); MAGNESIUM 1.9 MG/DL (1.5-2.5); SODIUM (NA) 138 MEQ/L (136-145); TOTAL BILIRUBIN ADULT 0.4 MG/DL (0.2-1.0); TOTAL PROTEIN 7.6 GM/DL (6.4-8.2)
[2017-12-13] MEDS ORDERED: ZOFR4TAB PO (17:27)
--- NOTE | 2017-12-14 14:13 | EKG ---
Date Performed: 12/13/2017 Time Performed: 16:43:45 PTAGE: 27 years EKG: Sinus rhythm WITH SINUS ARRHYTHMIA BORDERLINE LEFT AXIS DEVIATION POSSIBLE RIGHT VENTRICULAR CONDUCTION DELAY BOR DERLINE ECG PREVIOUS TRACING : 10/13/2017 20.31 DOCTOR: Murtaza Lane Interpretating Date/Time 12/14/2017 14:12:30
== END 2017-12-13 18:20 | disposition home or self-care (01) ==
LOC: NEPD 15:18
DX: M79.1 Myalgia (principal); J45.909 Unspecified asthma, uncomplicated; R11.0 Nausea
CPT/HCPCS: 80053; 81001; 82550; 83735; 84703; 85025; 93005; 96360; 99284; J7030